=== PATIENT | male | born 1990 | race Caucasian/White ===

== ENCOUNTER 2017-06-24 12:44 | Emergency (ER) | END 2017-06-24 16:24 | disposition home or self-care (01) ==

== ENCOUNTER 2019-01-28 16:03 | Emergency (ER) | payer OTHER ==
[~2019-01-28] VITALS: Wt 80.0 kg
[~2019-01-28 16:03] MED LIST: CEPH-443 PO; HYDR-4011 PO; IBUP-1542 PO; SULF1TAB31 PO
[2019-01-28 16:05] VITALS: BP 144/74; PULSE 85; RESP 18
== END 2019-01-28 17:22 | disposition home or self-care (01) ==
LOC: FTE 16:03
DX: S61.412A Laceration without foreign body of left hand, initial encounter (principal); X58.XXXA Exposure to other specified factors, initial encounter; Y92.9 Unspecified place or not applicable; Z48.01 Encounter for change or removal of surgical wound dressing
CPT/HCPCS: 12002; Z7502; Z7610